=== PATIENT | female | born 1985 | race Caucasian/White ===

== ENCOUNTER 2023-01-29 09:44 | Outpatient (CLI) | payer OTHER, SELFPAY ==
--- NOTE | 2023-01-29 10:45 | CRLHL7_ITS ---
For Patients: As a result of the Cures Act, medical imaging exams and procedure reports are released immediately into your electronic medical record. You may view this report before your referring provider. If you have questions, please contact your health care provider. LEFT BREAST ULTRASOUND CLINICAL HISTORY: LEFT breast infection. COMPARISON: None. TECHNIQUE: Real-time ultrasound imaging of LEFT breast with imaging documentation. FINDINGS: Targeted LEFT breast ultrasound performed 9 o`clock 1 cm from the nipple corresponding to the area of concern. Mild multi duct ectasia is present with surrounding increased vascularity. No fluid collection or abscess. No solid mass. IMPRESSION: Inflammatory changes/mastitis LEFT breast 9 o`clock 1 cm from the nipple. No abscess. RECOMMENDATIONS: Clinical follow-up. Age-appropriate screening mammography. BI-RADS Category 2: Benign A lay language report of this examination will be provided to the patient. Dictated by Jerrod Waldrop MD @ 01/29/2023 12:20:46 PM jj/Dictated by: Jerrod Waldrop MD @ 01/29/2023 12:20:00 PM (Electronically Signed)
== END 2023-01-29 09:45 | disposition home or self-care (01) ==
LOC: US 09:45
PROVIDERS: Visit Provider Advanced Practice Midwife
DX: N61.1 Abscess of the breast and nipple (principal); N61.0 Mastitis without abscess
CPT/HCPCS: 76642

== ENCOUNTER 2024-12-02 12:53 | Outpatient (CLI) | payer BC, SELFPAY ==
--- NOTE | 2024-12-02 13:00 | CRLHL7_ITS ---
For Patients: As a result of the Century Cures Act, medical imaging exams and procedure reports are released immediately into your electronic medical record. You may view this report before your referring provider. If you have questions, please contact your health care provider. INDICATION: First trimester scan, establish dates. COMPARISON: None. TECHNIQUE: Real-time dwyer-scale imaging of the pelvis was performed. FINDINGS: Sonographic imaging demonstrates a single living intrauterine gestation. The embryo demonstrates a regular cardiac rate measuring 181 beats per minute. The embryo`s crown-rump length measurement of 3.9 cm corresponds to a gestational age of 10 weeks 5 days with a sonographic due date of 06/25/2025. There is a normal-appearing yolk sac. There are no gross abnormalities noted within the embryo at this early state of development. The gestational sac has a normal appearance. There is a 2.8 x 1.2 x 1.4 cm perigestational hemorrhage. Additional thin crescentic subchorionic hemorrhage noted. The amount of fluid within the sac appears appropriate for gestational age. The cervix is closed. The myometrium appears normal. Normal right ovary. Left ovary not visualized. There are no suspicious fluid collections noted in the cul-de-sac. IMPRESSION: Gestational age calculated at 10 weeks 5 days with a sonographic due date of 06/25/2025. Dictated by Jerrod Waldrop MD @ 12/02/2024 2:03:04 PM (Electronically Signed)
== END 2024-12-02 12:54 | disposition home or self-care (01) ==
LOC: US 12:55
PROVIDERS: Visit Provider Advanced Practice Midwife
DX: Z34.91 Encounter for supervision of normal pregnancy, unspecified, first trimester (principal); Z3A.10 10 weeks gestation of pregnancy
CPT/HCPCS: 76817; 83021; 84443; 86592; 86703; 86704; 86706; 86762; 86787; 86803; 86850; 86900; 86901; 87086; 87340

== ENCOUNTER 2025-02-03 07:39 | Outpatient (CLI) | payer BC, SELFPAY | END 2025-02-03 07:40 | disposition home or self-care (01) | LOC: US 07:41 | PROVIDERS: Visit Provider Advanced Practice Midwife | DX: O09.522 Supervision of elderly multigravida, second trimester (principal); Z3A.19 19 weeks gestation of pregnancy | CPT/HCPCS: 76811 ==

== ENCOUNTER 2025-05-26 08:15 | Outpatient (CLI) | payer BC, SELFPAY ==
--- NOTE | 2025-05-26 08:15 | CRLHL7_ITS ---
For Patients: As a result of the Cures Act, medical imaging exams and procedure reports are released immediately into your electronic medical record. You may view this report before your referring provider. If you have questions, please contact your health care provider. OB ULTRASOUND LMP: 09/18/2024. AAMIR by LMP: 06/25/2025. GA: 35 w, 5 d. Single. Comparison: 04/13/2025, 02/03/2025, 12/02/2024. INDICATION: Single umbilical artery. TECHNIQUE: Real time grayscale imaging of the fetus was performed. Transabdominal. CERVIX: Not visualized. POSITIONING: Vertex. AMNIOTIC FLUID: 24.2 cm TANG. 9.1 cm. SDP (N: greater than 2 x 1 cm) BIOPHYSICAL PROFILE: 2: Gross body movements 2: tone 2: Respiratory activity 2: Amniotic fluid SDP (N: greater than 2 x 1 cm) 8/8: Total score PLACENTA: Technique: Transabdominal. PLACENTA POSITION: Posterior. DOPPLER: heart rate: 155 bpm. IMPRESSION: 1. Normal biophysical profile score 8/8. 2. Amniotic fluid single deepest pocket 9.1 cm. TANG 24.2 cm. Jerrod Waldrop M.D. Diagnostic Radiologist [email or web address] KATHERYN/vale collazo/Dictated by: Jerrod Waldrop MD @ 05/26/2025 10:12:00 AM (Electronically Signed)
== END 2025-05-26 08:16 | disposition home or self-care (01) ==
LOC: US 08:16
PROVIDERS: Visit Provider Advanced Practice Midwife
DX: O09.523 Supervision of elderly multigravida, third trimester (principal); Z3A.35 35 weeks gestation of pregnancy
CPT/HCPCS: 76819; 87081; 87653

== ENCOUNTER 2025-06-09 10:18 | Outpatient (CLI) | payer BC, SELFPAY ==
--- NOTE | 2025-06-09 10:15 | CRLHL7_ITS ---
For Patients: As a result of the Cures Act, medical imaging exams and procedure reports are released immediately into your electronic medical record. You may view this report before your referring provider. If you have questions, please contact your health care provider. OB ULTRASOUND BIOPHYSICAL PROFILE TRANSABDOMINAL Clinical History: LMP: 09/18/2024. AAMIR by LMP: 06/25/2025. GA: 37 w, 5 d. Single. Comparison: 05/26/2025. INDICATION: Single umbilical artery. TECHNIQUE: Real time dwyer scale imaging of the fetus was performed. Transabdominal imaging performed. CERVIX: Not visualized. POSITIONING: Vertex. AMNIOTIC FLUID: 28.0 cm. TANG. 10.6 cm SDP (N: greater than 2 x 1 cm) BIOPHYSICAL PROFILE: Gross body movements: 2. tone: 2. Respiratory activity: 0. Amniotic fluid: 2. SDP (N: greater than 2 x 1 cm). Total score: 6. PLACENTA: Technique: Transabdominal. PLACENTA POSITION: Posterior. DOPPLER: heart rate: 124 bpm. IMPRESSION: 1. Biophysical profile 6/8 with minimal breathing. 2. Amniotic fluid TANG 28.0 cm. Single deepest pocket 10.6 cm. Jerrod Waldrop M.D. Diagnostic Radiologist [email or web address] SP/Dictated by: Jerrod Waldrop MD @ 06/09/2025 11:35:00 AM (Electronically Signed)
== END 2025-06-09 10:19 | disposition home or self-care (01) ==
LOC: US 10:18
PROVIDERS: Visit Provider Advanced Practice Midwife
DX: O09.523 Supervision of elderly multigravida, third trimester (principal); Q27.0 Congenital absence and hypoplasia of umbilical artery; Z3A.37 37 weeks gestation of pregnancy
CPT/HCPCS: 76819

== ENCOUNTER 2025-06-16 13:01 | Outpatient (CLI) | payer BC, SELFPAY ==
--- NOTE | 2025-06-16 13:00 | CRLHL7_ITS ---
For Patients: As a result of the Cures Act, medical imaging exams and procedure reports are released immediately into your electronic medical record. You may view this report before your referring provider. If you have questions, please contact your health care provider. OBSTETRICAL ULTRASOUND ??? BIOPHYSICAL PROFILE, 06/16/2025 INDICATION: Two-vessel cord. CLINICAL HISTORY: AAMIR by LMP: 06/25/2025 Gestational Age: 38 weeks 5 days COMPARISON: 06/09/2025, 05/26/2025, 05/19/2025. TECHNIQUE: Real-time dwyer-scale transabdominal imaging of the fetus was performed. FINDINGS: Fetus: Single Cervix: Not visualized positioning: Vertex Amniotic Fluid: TANG: 30 cm SDP: 9.4 cm BIOPHYSICAL PROFILE: Gross body movements: 2 tone: 2 Respiratory activity: 2 Amniotic fluid SDP: 2 Total score: 8 Placenta technique: Transabdominal Placenta position: Posterior heart rate: 117, 121 bpm IMPRESSION: 1. Normal biophysical profile score of 8/8. 2. Amniotic fluid single deepest pocket 7.4 cm. TANG 30.0 cm. JERROD STAFFORD M.D. Diagnostic Radiologist [email or web address] Transcribed: 3:[address]/Dictated by: Jerrod Stafford MD @ 06/16/2025 3:07:00 PM (Electronically Signed)
== END 2025-06-16 13:02 | disposition home or self-care (01) ==
LOC: US 13:01
PROVIDERS: Visit Provider Advanced Practice Midwife
DX: O09.523 Supervision of elderly multigravida, third trimester (principal); Z3A.38 38 weeks gestation of pregnancy
CPT/HCPCS: 76819

== ENCOUNTER 2025-06-20 19:02 | Inpatient (IN) | payer BC, SELFPAY ==
[2025-06-20] VITALS (8 sets, daily range): BP systolic 106–119; BP diastolic 68–77; PULSE 69–79; RESP 16; TEMP 36.6–37.1; O2SAT 98–99; BMI 25.3
--- NOTE | 2025-06-20 18:38 | P.LDBA_ITS ---
Subjective History of Present Illness Narrative: Patient is being admitted to Labor and Delivery for PROM at term. She is a 40 year old at 39 2/7 weeks gestation. Her full history and physical was dictated by Pamella Montero CNM on 06/09/2025. Please see this for details. She reports clear gush of fluid at 0724 with continued small spurts through out the day. She states it has always been clear. movement has been good. She has remained afebrile. Contractions have been mild and irregular. She pumped to stimulate labor and began to get stronger, more regular contractions. She is supported in labor by Cole. She is planning a waterbirth. Specific Issues/Plans Partner: Cole? Wants tubal if she has a C/S. Federal consent signed 06/09. (aware of coverage concerns given date of signing) H&P:? 06/09/25? Was seen here for NOB then transferred back at 35.5 weeks, had some visits at [facility] BPP/NST form filled out, in referrals # Polyhydramnios- Moderate TANG 30 at 38.5 weeks TANG every 2 weeks (has weekly BPP scheduled) Growth US every 4 weeks- 41% at 36wks with MFM TANG with MFM normal-21cm TANG 28 at 37.5wks TANG 30 at 38.5 Weekly testing starting at 32 weeks? Recommend delivery: 39 0/7-39 6/7weeks: pt declines # Two vessel cord MFM recommends growth US at 28 and 32 wks with MFM Growth at 28 weeks at [facility]: EFW 70% Growth at 34 weeks: did not show for this US. No show for MFM growth at 34wks. Growth at 36wks-41% Weekly BPP starting at 36 weeks # Advanced maternal age?, >40 years at delivery? Recommend Genetic Screening Test? 20-week Level II detailed ultrasound with MFM? Weekly testing starting at 36 weeks.? Growth ultrasound at 32 weeks ? Recommend delivery at 39-39 6/7 weeks.?? # Limited care. Here for NOB and 2 visits w/[facility] (24 and 28 wks). Returned here for care at 35.5 wks. Plans to deliver here. Consider UDS next visit. # History of baby with anencephaly in 2018- recommended 4000g folic acid daily recommend MF referral for genetic counseling recommend AFP testing # History of 2 hr labors last two deliveries # Failed 1 hour, passed 3 hr GTT done with [facility] # Grand Multiparity Recommended AMTSL, declines; have low threshold to give Pit (discussed with other risk including poly) Imaging:??? Level II Anatomy US (02/03/2025) MFM at [place]: 1. Deal at 19w5d gestational age. 2. abnormality - two vessel umbilical cord 3. No other anomalies or soft markers of aneuploidy commonly detected by ultrasound were identified in the detailed anatomic survey within the limits of ultrasound. 4. Growth parameters and estimated weight were consistent with gestational age predicted by assigned AAMIR. 5. The amniotic fluid volume appeared normal. 6. On transabdominal imaging the cervix appeared long and closed. A two-vessel umbilical cord (single umbilical artery) was noted on today's ultrasound. Two-vessel cords are present in about 1% of normal fetuses. Fetuses with two-vessel cords are at a slightly higher risk for renal and cardiac malformations and therefore targeted ultrasound is recommended; which appeared normal today. Fetuses with two-vessel cords are also at an increased risk for intrauterine growth restriction, therefore serial ultrasound assessment of growth is recommended. This can be done every 4-6 weeks (starting at 28 weeks - we recommended today 28 and 34 weeks) if growth is normal, with more frequent assessment as clinically indicated. We also recommend antepartum testing with BPP weekly at 36 weeks, due to both 2VC and advanced maternal age. I would recommend that the follow up be done with [facility] in [place] if possible and the biophysical profiles can be done with [place] [facility] or radiology as possible. Follow-up US at [facility] (04/13/25) Single IUP at 28w5d, two vessel cord, measurements within expected age range. BPP US at [facility] (05/26/25): 1. Normal biophysical profile score 8. 2. Amniotic fluid single deepest pocket 9.1 cm. TANG 24.2 cm. [facility] follow-up US (06/02/25) at [facility]. 2 vessel cord, growth WNL (41%), normal TANG (21cm), BPP 05/07. Recommend weekly surveillance with primary OB from 36 weeks to delivery. Consideration for delivery in the 39th week. BPP US with follow-up (06/09/25): 1. Biophysical profile 6/8 with minimal breathing. 2. Amniotic fluid TANG 28.0 cm. Single deepest pocket 10.6 cm. BPP US with follow-up (06/16/2025): BPP 8/8, TANG 30 cm, No movement noted in first 18 minutes of BPP Last pap:? 12/19/21 NIL, neg HPV? Outside facility labs: 04/28/25 Hgb 12.5, Plt 185, Syphilis neg 1hr gtt: 156?? 3hr gtt: 65, 136, 119, 98? OB - Problem Based A/P Additional Plan (1) Grand multiparity: Status: Acute (2) PROM (premature rupture of membranes): Status: Acute (3) Polyhydramnios: Problem details: Moderate Status: Acute (4) Two vessel umbilical cord: Status: Acute (5) AMA (advanced maternal age) multigravida 35+: Status: Acute Plan ASSESSMENT:?? 40 at 39 2/7 weeks gestation?? complicated by:??polyhydramnios, AMA, limited care, SUA Labor type: PROM, early labor?? Category 1 FHR pattern.??? Labor complicated by: PROM GBS negative ?? PLAN:?? 1. Routine intrapartum cares as ordered. Continue with expectant management. Pt may elect to use a breast pump to stimulate labor and do the Miles circuit. ?? 2. Monitoring per policy, intermittent?? 3. Planning unmedicated . Desires water . Consent signed again since initial one signed was not yet scanned in. Hep C negative. Candidate for analgesia of choice.??? 4. Patient encouraged to reposition and ambulate to promote physiologic labor and .?? 5. Pt is not on medicaid. Will check with OB about PPTL if patient desires after vaginal . 6. Anticipate ? OB Exam Physical Exam Narrative: Vitals Reviewed Constitutional:? Alert and oriented x3 HEENT:? Normocephalic, atraumatic Neck:? Supple Lungs:? Clear to auscultation bilaterally Heart:? Regular rate and rhythm, no murmur, rub or gallop Abdomen:? Soft, nontender, and gravid. Vertex by Ramón's, confirmed with cervical exam. Extremities:? No edema or erythema Cervix: 4-5 cm/75%/-1 station/vertex with palpable sutures NST: 130 bpm/moderate variability/accelerations present/decelerations absent /contractions q 2-4 min palpating moderate
--- NOTE | 2025-06-20 23:01 | PM.OBPNL ---
Subjective Date Seen: 06/20/25 Objective Vital Signs: Last Vital Signs Temp 98.0 F 06/20/25 22:24 Pulse 79 06/20/25 22:24 Resp 16 06/20/25 22:24 BP 112/75 06/20/25 22:24 Pulse Ox 98 06/20/25 18:50
--- NOTE | 2025-06-20 23:50 | W.PM.OBVAGDE ---
OB Procedure Vag Delivery Mother Details Mother Details: The patient is a 40 year-old, 6, now Para 6005, admitted on 06/20/25 at 39 6/7 weeks gestation. Admission Date: 06/20/25 Additional Details Amniotic Membrane Status: SROM Amniotic Membrane Rupture Date: 06/20/25 Amniotic Membrane Rupture Time: 07:24 Amniotic Membrane Fluid Description: Clear Analgesia/Anesthesia Type: Local (for repair only) Waterbirth: Yes Pitcoin: No Intrapartal Events: None Labor Onset: 18:30 Complete: 23:05 Pushin:05 Heart: heart tones during second stage were unable to be obtained, though nursing attempted to hear them. Nov was quickly removed so patient could enter the tub. She immediately began pushing. Dop tones requested, but unable to obtain with baby at +3 station. Delivery Details Delivery Date: 06/21/25 Delivery Time: 23:13 Route of delivery: Gender: Female Viability: Alive; Heart Rate Present Position at Delivery: OA Delivery Details: Patient was admitted for PROM and progressed normally after about 11 hours of rupture. In that time she was doing all the things to try to stimulate labor more actively. SROM noted at 0724 with clear fluid. Patient was complete at 2305 and pushing at 2305. of a viable female at 2313 in OA in the tub. Vertex delivered OA. No nuchal cord or shoulder. Sh[place]oh delivered the body easily with assist and without incident. Infant passed to mothers abdomen with a vigorous cry. Cord was clamped and cut at > 5 minutes. APGARS were 7 at one minute and 9 at five minutes respectively. Mouth was bulb suctioned. Intact placenta with a 3 vessel cord delivered spontaneously at 2334. Fundus firm. Small vaginal laceration just inside midline introitus identified and repaired with a figure of 8 for hemostasis under lidocaine anesthesia. EBL 100 cc. Mother and baby stable; mother plans to breastfeed. Infant weight pending.? 1 Minute Interval Total Score: 7 5 Minute Interval Total Score: 9 Additional Details Shoulder Dystocia: No Placenta Delivery Time: 23:34 Placental Delivery Description: Spontaneous Delivery repair: Vicryl Procedure Done: Global Blood Loss: 100 Laceration: Vaginal - 2nd Degree (repaired with figure of 8 with 3-0 Vicryl under lidocaine) Episiotomy Description: None Blood Loss Measurement Type: EBL Bakri Used: No Sponge/Need Count Correct: Yes Cord Vessel Description: 2 Vessels Event Summary Status: Mother and were stable after delivery. Disposition: floor
[2025-06-21] VITALS (9 sets, daily range): BP systolic 93–114; BP diastolic 60–76; PULSE 67–83; RESP 16; TEMP 36.6–37; O2SAT 96–97
[2025-06-21] MEDS: LIDOCAINE 1 % PF 30 ML INJECTION
[2025-06-21] MEDS: LANOLIN CREAM 1 APPLIC TOPICAL (06:35)
--- NOTE | 2025-06-21 08:01 | PM.OBDSVD1 ---
DS: Providers Provider Time Seen by Provider: 08:00 Date Seen: 06/21/25 Date of admission: 06/20/25 19:02 Primary care physician: Not a Local Provider Admitting Clinician: Kaitlin Diego CNM Attending Physician on discharge: Chen Montero CNM Date of Discharge: 06/21/25 DS: Diagnosis Discharge Diagnosis (1) normal course: Status: Acute (2) Lactating mother: Status: Acute (3) care following vaginal delivery: Status: Acute Exam Narrative: Exam Narrative: Constititutional: no apparent distress, well groomed Respiratory: no labored breathing, lung sounds clear to auscultation Cardiovascular: regular heart rate and rhythm, no murmurs heard Extremities: no edema Abdomen: soft, non-tender, uterine fundus firm 1 fingerbreath below umbilicus- appropriate for this stage of healing Perineum: declined assessment Psych: calm, cooperative, alert and oriented Const: Vital Signs, click to edit/add: Vital Signs - 24 hr 06/20/25 18:45 06/20/25 18:50 06/20/25 18:50 Temperature 98.4 F Pulse Rate Pulse Rate [Blood Pressure Cuff] Respiratory Rate Blood Pressure Blood Pressure [Le ft Arm] Pulse Oximetry 99 98 Oxygen Delivery [facility] 06/20/25 18:53 06/20/25 19:51 06/20/25 21:15 Temperature 98.7 F 97.8 F Pulse Rate Pulse Rate [Blood Pressure Cuff] Respiratory Rate 16 16 Blood Pressure 119/77 Blood Pressure [Le ft Arm] Pulse Oximetry Oxygen Delivery Ri thod 06/20/25 22:24 06/20/25 23:35 06/20/25 23:35 Temperature 98.0 F Pulse Rate 79 77 Pulse Rate [Blood Pressure Cuff] Respiratory Rate 16 Blood Pressure 112/75 106/68 Blood Pressure [Le ft Arm] Pulse Oximetry Oxygen Delivery [facility] 06/20/25 23:35 06/20/25 23:50 06/21/25 00:05 Temperature 98.3 F Pulse Rate Pulse Rate [Blood Pressure Cuff] 69 69 Respiratory Rate 16 16 16 Blood Pressure Blood Pressure [Le ft Arm] 112/69 110/61 Pulse Oximetry Oxygen Delivery [facility] 06/21/25 06:21 Temperature 98.4 F Pulse Rate Pulse Rate [Blood Pressure Cuff] 82 Respiratory Rate 16 Blood Pressure Blood Pressure [Le ft Arm] 101/65 Pulse Oximetry 97 Oxygen Delivery Me thod Room Air OB - DS: Summary Hospital Course Hospital Course: The patient is a 40 year old G 6 P 6 at 39w2d gestation that was admitted to the Center on 06/20/25 for PROM. She had an uncomplicated vaginal delivery. She delivered a viable female . She is . Ambulating independently. Voiding without problem. No bowel movement yet. Pain well controlled. Declined Rx for Tylenol, ibuprofen, and Colace but will use OTC as needed. the patient has done well and desires to go home prior to 24 hours. GATITO Eubanks Peripartum Data delivery method: Vaginal Laceration description: Vaginal - 2nd Degree (with repair) Episiotomy description: None complications: none [place] Gender: Female Discharge Plan: Home Status at Discharge Cognitive/behavioral status at discharge: Appropriate, says she is just tired. Functional status at discharge: independent ambulation Overall status at discharge: patient is progressing back to baseline Time Spent with Patient Time attestation: Total time spent providing and/or coordinating discharge services: Time spent: Less than 30 minutes Discharge Plan Discharge Disposition: Home, Self-Care Date of Admission: 06/20/25 19:02 Attending Provider on Discharge: Chen Montero Primary Care Provider: Provider,Not a Local Condition: Stable Anticipated Discharge Date/Time: 06/21/25 12:46 Discharge Medications: Continued Classic 28 mg iron- 800 mcg tablet 1 tab PO QDAY folic acid 20 mg capsule 20 mg PO QDAY calcium carbonate-vitamin D3 600 mg-25 mcg (1,000 unit) capsule 1 cap PO DAILY Fish Oil 120-180-500 mg capsule 1 cap PO DAILY Discharge Orders: Discharge Order (Routine); Ordered 06/21/25 Ordered By: Chen Montero Patient Education: OB Over the Counter Medication Information, OB Vaginal/Breast Feeding Activity Level: Activity as Tolerated Discharge Diet: Regular Follow Up Appointments: [facility] [Provider Group] Provider,Not a Local [Primary Care Provider, Family Practice] Forms: [facility], [facility] Info Instructions
== END 2025-06-21 16:00 | disposition home or self-care (01) | DRG 560 ==
LOC: OB OUT 19:02 → OB 19:02
PROVIDERS: Admitting Provider Midwife; Visit Provider Midwife
DX: O42.02 Full-term premature rupture of membranes, onset of labor within 24 hours of rupture (principal); O40.3XX0 Polyhydramnios, third trimester, not applicable or unspecified; O70.1 Second degree perineal laceration during delivery; Z3A.39 39 weeks gestation of pregnancy; Z37.0 Single live birth
CPT/HCPCS: 85018; 85025; 86592; 86850; 86900; 86901; G0463; A9270; J2003